=== PATIENT | female | born 1965 | race Caucasian/White ===

== ENCOUNTER 2017-01-28 21:15 | Emergency (ER) | payer OTHER ==
--- NOTE | 2017-01-28 21:33 | PDOC ---
History of Present Illness - General History Source: Patient Exam Limitations: No Limitations - History of Present Illness Initial Comments: 01/28/17 22:01 The patient is a 51 year old female with a significant past medical history of anxiety, HIV (on truvada + tivicay), arthritis, and bursitis, who presents to the ER with left foot pain that radiates up the leg for one week and frequent dizzines. Patient describes the pain as a cramp. She states the the pain often radiates to the entire left side, including her left abdomen and left side of the neck. She is a poor historian and disorganized in her speech. Patient says she went to visit her HAIR MACHINE OPERATOR, Chastity El, for a regular checkup at [facility]. She was told to go to the ER for an evaluation of her symptoms and to r/o DVT if symptoms persist. Patient says she has had swelling in the lower extremities in the past. On interview, patient also reports feeling frequent dizziness and would like a head CT for her symptoms. Denies trauma, head or neck injury Denies fever, chills, cough Denies nausea, vomiting, diarrhea Denies paresthesia <Madison Santiago - Last Filed: 01/28/17 22:32> - General History Source: Patient <Remigio Jensen - Last Filed: 01/28/17 23:37> - General Chief Complaint: Pain Stated Complaint: Lightheaded Time Seen by Provider: 01/28/17 21:26 Past History <Madison Santiago - Last Filed: 01/28/17 22:32> - Past Medical History Anemia: No Asthma: Yes Cancer: No Cardiac Disorders: Yes COPD: No Diabetes: No GI Disorders: Yes HTN: No Hypercholesterolemia: Yes Psychiatric Problems: Yes (BIPOLAR) Seizures: Yes - Surgical History Abdominal Surgery: Yes ( X 2) - Psycho/Social/Smoking Cessation Hx Anxiety: Yes Suicidal Ideation: No Smoking History: Unknown if ever smoked Have you smoked in the past 12 months: Yes Number of Cigarettes Smoked Daily: 1 Information on smoking cessation initiated: No Hx Alcohol Use: (unknown) Drug/Substance Use Hx: (unknown) Substance Use Type: None <Remigio Jensen - Last Filed: 01/28/17 23:37> - Past Medical History Allergies/Adverse Reactions: Allergies Allergy/AdvReac Type Severity Reaction Status Date / Time Penicillins Allergy Mild Rash Verified 01/28/17 21:26 haloperidol [From Haldol] AdvReac Severe Swelling Verified 01/28/17 21:26 haloperidol lactate AdvReac Severe Swelling Verified 01/28/17 21:26 [From Haldol] Home Medications: Ambulatory Orders Dolutegravir Sodium [Tivicay] 50 mg PO DAILY #30 tablet 01/12/17 Emtricitabine/Tenofovir [Truvada] 1 tab PO DAILY #30 tablet 01/12/17 Topiramate [Topamax] 100 mg PO BID 01/14/17 Trazodone HCl [Desyrel -] 50 mg PO HS 01/14/17 Review of Systems - Review of Systems Able to Perform ROS?: Yes Comments:: 01/28/17 22:01 CONSTITUTIONAL: Absent: fever, no chills, no fatigue EYES: Absent: visual changes ENT: Absent: ear pain, no sore throat CARDIOVASCULAR: Absent: chest pain, no palpitations RESPIRATORY: Absent: cough, no SOB GI: Absent: abdominal pain, no nausea, no vomiting, no constipation, no diarrhea GENITOURINARY: Absent: dysuria, no frequency, no hematuria MUSCULOSKELETAL: Present: Left foot pain radiating up the left leg. Absent: back pain, no arthralgia, no myalgia SKIN: Absent: rash NEURO: Present: Dizziness Absent: headache <Uts,Madison - Last Filed: 01/28/17 22:32> *Physical Exam - Vital Signs Last Vital Signs Temp Pulse Resp BP Pulse Ox 98.0 F 76 14 120/69 99 01/28/17 21:26 01/28/17 21:26 01/28/17 21:26 01/28/17 21:26 01/28/17 21:26 - Physical Exam Comments: 01/28/17 22:02 GENERAL: In mild distress, doubled over, well-nourished. HEENT: Normocephalic, atraumatic. PERRL, EOM intact. CARDIOVASCULAR: Normal S1, S2. Regular rate and rhythm. PULMONARY: Clear to auscultation bilaterally. ABDOMEN: Soft, non-distended, non-tender. EXTREMITIES: Normal ROM in all four extremities. Right calf more swollen than the left. Pulse equal bilaterally. No erythema. Homans sign is negative. SKIN: Warm, dry. No rash NEUROLOGICAL: No focal neurological deficits. <Madison Santiago - Last Filed: 01/28/17 22:32> - Vital Signs Last Vital Signs Temp Pulse Resp BP Pulse Ox 98.0 F 76 14 120/69 99 01/28/17 21:26 01/28/17 21:26 01/28/17 21:26 01/28/17 21:26 01/28/17 21:26 <Remigio Jensen - Last Filed: 01/28/17 23:37> Heart Score/ECG Review - ECG Impressions Comment:: 01/28/17 22:32 EKG impression reviewed by Dr. Jensen: Possible left atrial enlargement. Ventral rate: 68 bpm, FL interval: 166 ms, QRS duration: 90 ms, QT/QTc 424/450 ms <Madison Santiago - Last Filed: 01/28/17 22:32> Medical Decision Making - Medical Decision Making 01/28/17 23:37 Dr. Jensen: The scribe's documentation has been prepared under my direction and personally reviewed by me in its entirery. I confirm that the note above accurately reflects all work, treatment, procedures, and medical decision making performed by me. <Remigio Jensen - Last Filed: 01/28/17 23:37> *DC/Admit/Observation/Transfer - Attestations Scribe Attestion: 01/28/17 22:03 Documentation prepared by Madison Santiago, acting as bilingual medical assistant for Remigio Jensen DO. <Madison Santiago - Last Filed: 01/28/17 22:32> - Discharge Dispostion Admit: No <Remigio Jensen - Last Filed: 01/28/17 23:37> Diagnosis at time of Disposition: Leg pain - Discharge Dispostion Disposition: HOME Condition at time of disposition: Stable - Referrals Referrals: Christie Vazquez [Primary Care Provider] - - Patient Instructions Printed Discharge Instructions: DI for Leg Pain
[2017-01-28] MEDS ORDERED: METHOCARBAMOL 500 MG TABLET PO ONE (21:51)
[2017-01-28] MEDS ORDERED: IBUPROFEN 600 MG TABLET (FP) PO STA (21:51)
[2017-01-28 22:01] VITALS: BP 120/69; PULSE 76; TEMP 98; BMI 26.2
[2017-01-28] MEDS ORDERED: METHOCARBAMOL 500 MG TABLET ONE (22:03)
[2017-01-28] MEDS ORDERED: IBUPROFEN 600 MG TABLET (FP) PO ONE (22:03)
--- NOTE | 2017-01-29 12:41 | EKG ---
Test Reason : Blood Pressure : / mmHG Vent. Rate : 068 BPM Atrial Rate : 068 BPM P-R Int : 166 ms QRS Dur : 090 ms QT Int : 424 ms P-R-T Axes : 065 076 065 degrees QTc Int : 450 ms POOR DATA QUALITY, INTERPRETATION MAY BE ADVERSELY AFFECTED NORMAL SINUS RHYTHM POSSIBLE LEFT ATRIAL ENLARGEMENT BORDERLINE ECG WHEN COMPARED WITH ECG OF 27-FEB-2014 13:07, NO SIGNIFICANT CHANGE WAS FOUND Confirmed by ERNESTINA BAR MD ([id number]) on 01/29/2017 12:41:18 PM Referred By: Confirmed By:ERNESTINA BAR MD
== END 2017-01-28 23:50 | disposition home or self-care (01) ==
LOC: JER 21:15
DX: M79.605 Pain in left leg (principal); M12.9 Arthropathy, unspecified; J45.909 Unspecified asthma, uncomplicated; F31.9 Bipolar disorder, unspecified; F41.9 Anxiety disorder, unspecified; Z21 Asymptomatic human immunodeficiency virus [HIV] infection status
CPT/HCPCS: 70450-TC; 93005; 93010; 93970-TC; 99281-25

== ENCOUNTER 2018-01-04 21:35 | Emergency (ER) | payer OTHER ==
--- NOTE | 2018-01-04 21:43 | PDOC ---
Rapid Medical Evaluation Time Seen by Provider: 01/04/18 21:36 Medical Evaluation: Allergies Allergy/AdvReac Type Severity Reaction Status Date / Time Penicillins Allergy Mild Rash Verified 12/04/17 18:03 almond Allergy Verified 12/04/17 18:23 risperidone [From Risperdal] Allergy Swelling Verified 12/04/17 18:03 haloperidol [From Haldol] AdvReac Severe Swelling Verified 12/04/17 18:03 haloperidol lactate AdvReac Severe Swelling Verified 12/04/17 18:03 [From Haldol] cats Allergy Uncoded 12/04/17 18:23 dairy Allergy Uncoded 12/04/17 18:23 dogs Allergy Uncoded 12/04/17 18:23 dust Allergy Uncoded 12/04/17 18:23 01/04/18 21:40 I have performed a brief in-person evaluation of this patient. The patient presents with a chief complaint of: n/v/d w/ upper abd pain x several days. H/o anxiety, bipolar, undomiciled, asthma, on truvada for PrEP ( as per records, pt actively engages in high risk sexual behaviour but has neg HIV test) Pertinent physical exam findings:stable w/ odd affect, abd benign I have ordered the following:labs The patient will proceed to the ED for further evaluation. 01/04/18 21:45 P.S: Notes from Dr Mark from [facility] 11/08: 11/14/17, 2:20p - called pt and reviewed HIV Ab non-reactive, immune to Hep A/B; pt wants to continuing Truvada for PrEP b/c feels at higher risk due to situation with living in the alf and is unsure if she will meet someone and how that will put her at risk. Pt will consider and f/u in the next week or 2. 01/04/18 21:46
[2018-01-04 21:44] VITALS: BP 125/89; PULSE 72; TEMP 98.3; BMI 21.4
--- NOTE | 2018-01-04 21:58 | PDOC ---
History of Present Illness - General Chief Complaint: Nausea/Vomiting Stated Complaint: FATIGUE Time Seen by Provider: 01/04/18 21:36 History Source: Patient - History of Present Illness Initial Comments: 01/04/18 23:06 52 year old female c/o asthma exacerbation, nausea and left sided abdominal pain x 1 year. patient reports that she has been staying in snf. not drinking enough water. denies SI and HI at this time. patient reports that she is on PEP due to high risk sexual behaviors. pmhX: Psychiatric illness; asthma 01/04/18 23:44 Past History - Past Medical History Allergies/Adverse Reactions: Allergies Allergy/AdvReac Type Severity Reaction Status Date / Time Penicillins Allergy Mild Rash Verified 01/05/18 00:47 almond Allergy Verified 01/05/18 00:47 risperidone [From Risperdal] Allergy Swelling Verified 01/05/18 00:47 haloperidol [From Haldol] AdvReac Severe Swelling Verified 01/05/18 00:47 haloperidol lactate AdvReac Severe Swelling Verified 01/05/18 00:47 [From Haldol] cats Allergy Uncoded 01/05/18 00:47 dairy Allergy Uncoded 01/05/18 00:47 dogs Allergy Uncoded 01/05/18 00:47 dust Allergy Uncoded 01/05/18 00:47 Home Medications: Ambulatory Orders Topiramate [Topamax] 200 mg PO BID 01/14/17 Carbamazepine Xr [Tegretol Xr -] 200 mg PO BID 05/20/17 Emtricitabine/Tenofovir (Tdf) [Truvada 200 mg-300 mg Tablet] 1 each PO DAILY Fluticasone/Vilanterol [Breo Ellipta 100-25 Mcg INH] 1 each IH DAILY 12/04/17 Milnacipran HCl [Savella] 12.5 mg PO HS 12/04/17 Milnacipran HCl [Savella] 25 mg PO AM 12/04/17 Tizanidine HCl [Zanaflex (Nf) -] 2 mg PO TID 12/04/17 clonazePAM [Klonopin -] 0.5 mg PO BID 12/04/17 Polyethylene Glycol 3350 [Miralax (For Daily Use) -] 17 gm PO BID #1 bottle Anemia: No Asthma: Yes Cancer: No Cardiac Disorders: Yes (heart murmur) COPD: No Diabetes: No GI Disorders: No Disorders: No HTN: No Hypercholesterolemia: Yes Liver Disease: No Psychiatric Problems: Yes (BIPOLAR D/O) Seizures: Yes Thyroid Disease: No - Surgical History Abdominal Surgery: Yes ( X 2) Appendectomy: No Cardiac Surgery: No Cholecystectomy: No Lung Surgery: No Neurologic Surgery: No Orthopedic Surgery: No - Suicide/Smoking/Psychosocial Hx Smoking History: Unknown if ever smoked Have you smoked in the past 12 months: Yes Number of Cigarettes Smoked Daily: 1 Information on smoking cessation initiated: No Hx Alcohol Use: Yes (occasionally) Drug/Substance Use Hx: No Substance Use Type: None Review of Systems - Review of Systems Able to Perform ROS?: Yes Is the patient limited Nigerian proficient: No Constitutional: No: Symptoms Reported, See HPI, Chills, Diaphoresis, Fever, Loss of Appetite, Malaise, Night Sweats, Weakness, Weight Stable, Unintentional Wgt. Loss, Unexplained wgt Loss, Other Respiratory: Yes: Wheezing. No: Symptoms reported, See HPI, Cough, Orthopnea, Shortness of Breath, SOB with Exertion, SOB at Rest, Stridor, Productive cough, Hemoptysis, Other Cardiac (ROS): No: Symptoms Reported, See HPI, Chest Pain, Edema, Irregular Heart Rate, Lightheadedness, Palpitations, Syncope, Chest Tightness, Other ABD/GI: Yes: Nausea, Abdominal cramping (left side) : No: Symptoms Reported, See HPI, Burning, Dysuria, Discharge, Frequency, Flank Pain, Hematuria, Incontinence, Pain, Urgency, Testicular Mass, Testicular Swelling, Lesions, Testicular Pain, Other *Physical Exam - Vital Signs Last Vital Signs Temp Pulse Resp BP Pulse Ox 98.3 F 72 20 125/89 98 01/04/18 21:39 01/04/18 21:39 01/04/18 21:39 01/04/18 21:39 01/04/18 21:39 ED Treatment Course - LABORATORY CBC & Chemistry Diagram: 01/04/18 22:20 01/04/18 22:20 Medical Decision Making - Medical Decision Making A: Nausea; Constipation P: zofran cbc cmp HIV negative. XRay: + constipation ua patient refused 01/05/18 00:19 Patient Alert ox3. requesting to be discharged . nausea improved after zofran dose. *DC/Admit/Observation/Transfer Diagnosis at time of Disposition: Constipation Qualifiers: Constipation type: unspecified constipation type Qualified Code(s): K59.00 - Constipation, unspecified - Discharge Dispostion Disposition: HOME - Prescriptions Prescriptions: Polyethylene Glycol 3350 [Miralax (For Daily Use) -] 17 gm PO BID #1 bottle - Referrals - Patient Instructions Printed Discharge Instructions: Constipation Additional Instructions: drink plenty of fluids. follow up with your doctor as soon as possible. take miralax as prescribed. start a high fiber diet. - Post Discharge Activity
--- NOTE | 2018-01-04 22:16 | PDOC ---
*Physical Exam - Vital Signs Last Vital Signs Temp Pulse Resp BP Pulse Ox 98.3 F 72 20 125/89 98 01/04/18 21:39 01/04/18 21:39 01/04/18 21:39 01/04/18 21:39 01/04/18 21:39 ED Treatment Course - LABORATORY CBC & Chemistry Diagram: 01/04/18 22:20 01/04/18 22:20 Medical Decision Making - Medical Decision Making 01/05/18 00:34 Ms Balderas is a 52 yo F h/o asthma who presents to the ER with multiple complaints - asthma exacerbation, nausea and left sided abdominal pain x 1 year. 01/04/18 23:44 Pt seen by Midlevel Provider under my direct supervision Ancillary studies reviewed Laboratory Tests 01/04/18 01/04/18 01/04/18 22:20 22:20 22:48 WBC 5.4 Hgb 14.3 Hct 41.1 Plt Count 302 Alkaline Phosphatase 57 Troponin I < 0.02 HIV 1&2 Antibody Screen HIV P24 Antigen 01/04/18 23:10 WBC Hgb Hct Plt Count Alkaline Phosphatase Troponin I HIV 1&2 Antibody Screen Negative HIV P24 Antigen Negative I agree with plan as outlined by Midlevel Provider Pt discharged to home Pt asked to follow up with PMD Clinical Impression: chronic abdominal pain, initial presentation *DC/Admit/Observation/Transfer Diagnosis at time of Disposition: Constipation Qualifiers: Constipation type: unspecified constipation type Qualified Code(s): K59.00 - Constipation, unspecified - Discharge Dispostion Disposition: HOME - Prescriptions Prescriptions: Polyethylene Glycol 3350 [Miralax (For Daily Use) -] 17 gm PO BID #1 bottle - Referrals - Patient Instructions Printed Discharge Instructions: Constipation Additional Instructions: drink plenty of fluids. follow up with your doctor as soon as possible. take miralax as prescribed. start a high fiber diet. - Post Discharge Activity
[2018-01-04 22:30] LABS: BASO % 0.6 % (0-2.0); EOS % 1.4 % (0-4.5); HEMATOCRIT 41.1 % (32.4-45.2); HEMOGLOBIN 14.3 GM/dL (10.7-15.3); LYMPH % 32.7 % (8-40); MCH 33.3 pg (25.7-33.7); MCHC 34.9 g/dl (32.0-36.0); MEAN CELL VOLUME 95.5 fl (80-96); MEAN PLT VOLUME 7.7 fl (7.5-11.1); MONO % 8.9 % (3.8-10.2); NEUT % 56.4 % (42.8-82.8); PLATELET COUNT 302 K/MM3 (134-434); RBC 4.31 M/mm3 (3.60-5.2); RDW 12.9 % (11.6-15.6); WHITE BLOOD COUNT 5.4 K/mm3 (4.0-10.0)
[2018-01-04] MEDS ORDERED: ONDANSETRON 4 MG/2 ML VIAL IVPUSH ONE (22:48)
[2018-01-04 23:09] LABS: ALBUMIN 3.6 g/dl (3.4-5.0); ALK PHOS 57 U/L (45-117); ANION GAP 6 (8-16); BILIRUBIN,TOTAL 0.2 mg/dL (0.2-1.0); BLOOD UREA NITROGEN 15 mg/dL (7-18); CALCIUM 8.7 mg/dL (8.5-10.1); CHLORIDE 111 mmol/L (98-107); CO2 26 mmol/L (21-32); CREATININE 0.8 mg/dL (0.55-1.02); GLUCOSE,RANDOM 86 mg/dL (74-106); LIPASE 121 U/L (73-393); SGPT/ALT 23 U/L (12-78); SODIUM 143 mmol/L (136-145); TOT PROT 6.5 g/dl (6.4-8.2)
[2018-01-04 23:10] LABS: POTASSIUM 3.8 mmol/L (3.5-5.1); SGOT/AST 20 U/L (15-37)
== END 2018-01-05 01:19 | disposition home or self-care (01) ==
LOC: JER 21:35
PROC: 3E033GC Introduction of Other Therapeutic Substance into Peripheral Vein, Percutaneous Approach (ICD-10-PCS; principal; 2018-01-04)
DX: K59.00 Constipation, unspecified (principal); F31.9 Bipolar disorder, unspecified; F41.9 Anxiety disorder, unspecified; J45.909 Unspecified asthma, uncomplicated; Z86.69 Personal history of other diseases of the nervous system and sense organs; Z59.0 Homelessness
CPT/HCPCS: 36415; 71046-TC-FY; 74018-TC-FY; 80053; 83690; 84484; 85025; 87389; 96374; 99282-25